=== PATIENT | male | born 1970 | race Caucasian/White ===

== ENCOUNTER 2021-12-02 10:37 | Emergency (ER) | payer SELFPAY ==
[~2021-12-02] VITALS: Ht 162.6 cm; Wt 72.7 kg
[2021-12-02] MEDS ORDERED: IBUPROFEN 600 MG TABLET PO ONE (11:30)
[2021-12-02] MEDS ORDERED: ACETAMINOPHEN 500 MG TABLET PO ONE (11:30)
[2021-12-02] MEDS ORDERED: LIDOCAINE 5% TRANSDERMAL PATCH TD ONE (11:30)
[2021-12-02 12:52] VITALS: BP 121/70
== END 2021-12-02 12:54 | disposition home or self-care (01) ==
LOC: EMS 10:41
DX: S36.62XA Contusion of rectum, initial encounter (principal); J45.909 Unspecified asthma, uncomplicated; Z98.890 Other specified postprocedural states; W19.XXXA Unspecified fall, initial encounter; Y93.89 Activity, other specified; Y92.69 Other specified industrial and construction area as the place of occurrence of the external cause; Y99.8 Other external cause status
CPT/HCPCS: 99284; 71101; G0238; 94799; Z7502; Z7610